=== PATIENT | female | born 1965 | race Caucasian/White ===

== ENCOUNTER 2017-10-30 08:53 | Emergency (ER) | payer BC ==
[~2017-10-30] VITALS: Ht 167.6 cm; Wt 97.1 kg
[2017-10-30] MEDS ORDERED: DIAZEPAM 10 MG/2 ML SYR IVP ONE (09:05)
[2017-10-30] MEDS ORDERED: HYDROmorphone HCL 2 MG/ML SDV IVP ONE (09:05)
--- NOTE | 2017-10-30 09:23 | ER Report ---
History and Physical Time Seen By MD: 09:21 Hx. of Stated Complaint: PATIENT STARTED HAVING LEFT HIP PAIN YESTERDAY. PAIN IS GETTING WORSE HPI/ROS CHIEF COMPLAINT: Atraumatic left hip pain HISTORY OF PRESENT ILLNESS: Patient is a 52-year-old female who presents emergency Department with atraumatic left hip pain. She states that the pain started yesterday and radiates up the left side of the back. Has difficulty finding a position of comfort. She denies any injury. She does report nausea and vomiting last evening when the pain got very severe. The patient is able to ambulate but it does cause significant discomfort. Ice fevers or chills she denies chest pain shortness of breath or abdominal pain. REVIEW OF SYSTEMS: Respiratory: No cough, no dyspnea. Cardiovascular: No chest pain, no palpitations. Gastrointestinal: No vomiting, no abdominal pain. Musculoskeletal: Left-sided back and flank pain, left hip pain Allergies: Coded Allergies: No Known Drug Allergies (Unverified , 10/30/17) Home Meds No Active Prescriptions or Reported Meds Past Medical/Surgical History Noncontributory Hx Substance Use Disorder: No Hx Alcohol Use: No Constitutional Vital Sign - Last 24 Hours 10/30/17 10/30/17 10/30/17 10/30/17 09:02 09:02 09:08 09:23 Temp 98.6 Pulse 86 83 84 Resp 24 B/P (MAP) 128/94 128/94 (105) Pulse Ox 96 98 97 O2 Delivery Room Air 10/30/17 10/30/17 10/30/17 10/30/17 09:30 09:38 09:57 10:00 B/P (MAP) 126/74 (91) 128/68 (88) 115/72 (86) Pulse Ox 96 10/30/17 10:30 B/P (MAP) 118/71 (87) Physical Exam General Appearance: The patient is alert, has no immediate need for airway protection and no current signs of toxicity. Eyes: Pupils equal and round no injection. Respiratory: Chest is non tender, lungs are clear to auscultation. Cardiac: regular rate and rhythm Gastrointestinal: Abdomen is soft and non tender, no masses, bowel sounds normal. Musculoskeletal: Neck: Neck is supple and non tender. Left hip with painful range of motion no obvious deformity. Examination of back reveals left paraspinal muscle tenderness. No midline tenderness. Extremities have full range of motion and are non tender. Skin: No rashes or lesions. Medical Decision Making Data Points Result Diagram: 10/30/17 1015 10/30/17 1015 Laboratory Hematology Test 10/30/17 10:15 10/30/17 10:36 Red Blood Count 4.98 M/uL (4.17-5.56) Mean Corpuscular Volume 84.8 fL (80.0-96.0) Mean Corpuscular Hemoglobin 29.4 pg (26.0-33.0) Mean Corpuscular Hemoglobin Concent 34.7 g/dL (32.0-36.0) Red Cell Distribution Width 13.9 % (11.5-14.5) Mean Platelet Volume 8.2 fL (7.2-11.1) Neutrophils (%) (Auto) 80.8 % (39.4-72.5) Lymphocytes (%) (Auto) 15.3 % (17.6-49.6) Monocytes (%) (Auto) 3.5 % (4.1-12.4) Eosinophils (%) (Auto) 0.1 % (0.4-6.7) Basophils (%) (Auto) 0.3 % (0.3-1.4) Nucleated RBC Relative Count (auto) 0.1 /100WBC Neutrophils # (Auto) 4.3 K/uL (2.0-7.4) Lymphocytes # (Auto) 0.8 K/uL (1.3-3.6) Monocytes # (Auto) 0.2 K/uL (0.3-1.0) Eosinophils # (Auto) 0.0 K/uL (0.0-0.5) Basophils # (Auto) 0.0 K/uL (0.0-0.1) Nucleated RBC Absolute Count (auto) 0.00 K/uL Sodium Level 136 mmol/L (137-145) Potassium Level 3.8 mmol/L (3.5-5.0) Chloride Level 103 mmol/L (98-107) Carbon Dioxide Level 18 mmol/L (22-31) Blood Urea Nitrogen 11 mg/dl (7-18) Creatinine 0.60 mg/dl (0.52-1.04) Glomerular Filtration Rate Calc > 60.0 Random Glucose 124 mg/dl (75-110) Calcium Level 9.1 mg/dl (8.4-10.2) Total Bilirubin 0.8 mg/dl (0.2-1.3) Aspartate Amino Transf (AST/SGOT) 22 U/L (0-35) Alanine Aminotransferase (ALT/SGPT) 29 U/L (0-56) Alkaline Phosphatase 81 U/L (0-126) Total Protein 7.4 gm/dl (6.3-8.2) Albumin 4.2 g/dl (3.5-5.0) Urine Color Yellow Urine Clarity Clear Urine pH 8.0 pH (4.8-9.5) Urine Specific [place] 1.016 Urine Protein 30 mg/dL (NEGATIVE) Urine Glucose (UA) Negative mg/dL (NEGATIVE) Urine Ketones 20 mg/dL (NEGATIVE) Urine Blood Moderate (NEGATIVE) Urine Nitrite Negative (NEGATIVE) Urine Bilirubin Negative (NEGATIVE) Urine Urobilinogen Negative mg/dL (0.2-1.9) Urine Leukocyte Esterase Negative (NEGATIVE) Urine RBC 8 /HPF (0-2/HPF) Urine WBC 1 /HPF (0-5/HPF) Urine Squamous Epithelial Cells Many /LPF (</=FEW) Urine Transitional Epithelial Cells Few /LPF (NONE-FEW) Urine Bacteria Few /HPF (NONE-FEW) Urine Mucus Few /HPF (NONE-FEW) Chemistry Test 10/30/17 10:15 10/30/17 10:36 White Blood Count 5.3 k/uL (4.5-11.0) Red Blood Count 4.98 M/uL (4.17-5.56) Hemoglobin 14.6 g/dL (12.0-16.0) Hematocrit 42.3 % (34.0-47.0) Mean Corpuscular Volume 84.8 fL (80.0-96.0) Mean Corpuscular Hemoglobin 29.4 pg (26.0-33.0) Mean Corpuscular Hemoglobin Concent 34.7 g/dL (32.0-36.0) Red Cell Distribution Width 13.9 % (11.5-14.5) Platelet Count 245 K/uL (150-450) Mean Platelet Volume 8.2 fL (7.2-11.1) Neutrophils (%) (Auto) 80.8 % (39.4-72.5) Lymphocytes (%) (Auto) 15.3 % (17.6-49.6) Monocytes (%) (Auto) 3.5 % (4.1-12.4) Eosinophils (%) (Auto) 0.1 % (0.4-6.7) Basophils (%) (Auto) 0.3 % (0.3-1.4) Nucleated RBC Relative Count (auto) 0.1 /100WBC Neutrophils # (Auto) 4.3 K/uL (2.0-7.4) Lymphocytes # (Auto) 0.8 K/uL (1.3-3.6) Monocytes # (Auto) 0.2 K/uL (0.3-1.0) Eosinophils # (Auto) 0.0 K/uL (0.0-0.5) Basophils # (Auto) 0.0 K/uL (0.0-0.1) Nucleated RBC Absolute Count (auto) 0.00 K/uL Glomerular Filtration Rate Calc > 60.0 Calcium Level 9.1 mg/dl (8.4-10.2) Total Bilirubin 0.8 mg/dl (0.2-1.3) Aspartate Amino Transf (AST/SGOT) 22 U/L (0-35) Alanine Aminotransferase (ALT/SGPT) 29 U/L (0-56) Alkaline Phosphatase 81 U/L (0-126) Total Protein 7.4 gm/dl (6.3-8.2) Albumin 4.2 g/dl (3.5-5.0) Urine Color Yellow Urine Clarity Clear Urine pH 8.0 pH (4.8-9.5) Urine Specific [place] 1.016 Urine Protein 30 mg/dL (NEGATIVE) Urine Glucose (UA) Negative mg/dL (NEGATIVE) Urine Ketones 20 mg/dL (NEGATIVE) Urine Blood Moderate (NEGATIVE) Urine Nitrite Negative (NEGATIVE) Urine Bilirubin Negative (NEGATIVE) Urine Urobilinogen Negative mg/dL (0.2-1.9) Urine Leukocyte Esterase Negative (NEGATIVE) Urine RBC 8 /HPF (0-2/HPF) Urine WBC 1 /HPF (0-5/HPF) Urine Squamous Epithelial Cells Many /LPF (</=FEW) Urine Transitional Epithelial Cells Few /LPF (NONE-FEW) Urine Bacteria Few /HPF (NONE-FEW) Urine Mucus Few /HPF (NONE-FEW) Urinalysis Test 10/30/17 10:36 Urine Color Yellow Urine Clarity Clear Urine pH 8.0 pH (4.8-9.5) Urine Specific [place] 1.016 Urine Protein 30 mg/dL (NEGATIVE) Urine Glucose (UA) Negative mg/dL (NEGATIVE) Urine Ketones 20 mg/dL (NEGATIVE) Urine Blood Moderate (NEGATIVE) Urine Nitrite Negative (NEGATIVE) Urine Bilirubin Negative (NEGATIVE) Urine Urobilinogen Negative mg/dL (0.2-1.9) Urine Leukocyte Esterase Negative (NEGATIVE) Urine RBC 8 /HPF (0-2/HPF) Urine WBC 1 /HPF (0-5/HPF) Urine Squamous Epithelial Cells Many /LPF (</=FEW) Urine Transitional Epithelial Cells Few /LPF (NONE-FEW) Urine Bacteria Few /HPF (NONE-FEW) Urine Mucus Few /HPF (NONE-FEW) EKG/Imaging Imaging FACILITY: [facility] PATIENT NAME: Danyelle Lynch : 1965 MR: [id number] V: [id number] EXAM DATE: ORDERING PHYSICIAN: RAFAELA ABMROCIO TECHNOLOGIST: [place] [facility] [place] Danyelle Lynch : 1965 Visit/Account:[id number] Date of Sevice: 10/30/2017 Exam type: LUMBAR SPINE 2 OR 3 VIEW History: Back pain, no known injury Comparison: None. Findings: There are five nonrib-bearing lumbar-type vertebral bodies present. There is a very gentle dextroconvex scoliosis. There is mild to moderate disc space narrowing L1-2 with marginal osteophytes. This mild disc space narrowing L2-3 with marginal osteophytes Mild disc space narrowing L3-4 with marginal osteophytes Moderate to severe disc space narrowing on the right at L4-5 with marginal osteophytes at L5-S1 disc space appears preserved. There is no evidence of acute fractures or subluxations. IMPRESSION: 1. Multilevel spondylotic changes lumbar spine as described above. No evidence of acute fractures or subluxations Report Dictated By: Joselin Sarabia MD at 10/30/2017 10:19 AM Report E-Signed By: Joselin Sarabia MD at 10/30/2017 10:21 AM WSN:AMISAVANNAVTereso : 1965 MR: [id number] V: [id number] EXAM DATE: ORDERING PHYSICIAN: RAFAELA AMBROCIO TECHNOLOGIST: Location: [facility] [place] Patient: Danyelle Lynch : 1965 Visit/Account:[id number] Date of Sevice: 10/30/2017 CT abdomen and pelvis without contrast Indication: Left flank pain. Comparison: None Available. Technique: Axial CT images are obtained through the abdomen and pelvis. Reformatted coronal and sagittal images were reviewed. IV contrast was not administered. One of the following dose optimization techniques was utilized in the performance of this exam: Automated exposure control; adjustment of the mA and/ or kV according to the patient's size; or use of an iterative reconstruction technique. Specific details can be referenced in the facility's radiology CT exam operational policy. Findings: Lower lung mcduffie: Limited views lower lung field are unremarkable. Evaluation of the solid organs of the abdomen is limited without IV contrast. Liver: No focal parenchymal abnormality of the liver. Biliary: The gallbladder is contracted. There are multiple calcified lamellated gallstones. No surrounding inflammation. No biliary dilatation seen. Pancreas: Normal appearance. Spleen: Normal appearance. Adrenal glands: Unremarkable. Kidneys / retroperitoneum: There is no evidence of hydronephrosis or obstructive uropathy. On the left, there are 2 nonobstructing calculi. A 1 to 2 mm stone is seen in the midpole and there is a 2 to 3 mm stone in the lower pole. On the right, a 2 mm lower pole stone is seen. No other right-sided calculi. No ureteral calculi are seen bilaterally. Bowel / peritoneum / mesenteries: There are scattered sigmoid colon diverticula. No wall thickening or pericolonic inflammation. No evidence of acute diverticulitis. Appendix is normal. No focally dilated bowel loops. Lymph node assessment: No gross adenopathy on this noncontrast study. Pelvic structures: Uterus appears enlarged. There may be a right-sided fibroid demonstrating some mass effect upon the endometrial space. This is incompletely assessed on this noncontrast exam. There is a low-attenuation lesion seen within the right ovary measuring up to 4.1 cm in length. This does not represent a simple cyst. This could be further assessed with pelvic sonography. There is trace free pelvic fluid which is nonspecific. Vessels: Scattered atherosclerotic calcifications seen throughout a nonaneurysmal abdominal aorta and branches. Musculoskeletal / Body wall: No acute or aggressive osseous abnormality. Degenerative changes involve the lumbar spine at multiple levels. No compression deformity. There is a fat-containing umbilical hernia. IMPRESSION: 1. Bilateral nonobstructing renal calculi. No evidence for obstructive uropathy. 2. Cholelithiasis. 3. Question fibroid uterus. This could be further assessed with pelvic sonography. 4. Indeterminant low-attenuation lesion within the right adnexa/ovary measuring 4.1 cm. Comparison with prior imaging studies is recommended. If there are none , pelvic sonography should be performed for further assessment in a patient this age. 5. Colonic diverticulosis without diverticulitis. Report Dictated By: Pepito Garcia at 10/30/2017 12:17 PM Report E-Signed By: Pepito Garcia at 10/30/2017 12:27 PM WSN:[id number] ED Course/Re-evaluation Clinical Indication for ER IV: IV Access ED Course 10/30/2017 10:38:13 am plan at this time will be to place an IV for pain relief we'll check CBC CMP urinalysis. Bedside ultrasound failed to demonstrate any obvious hydronephrosis. We'll consider a CT scan to look for kidney stone if the patient has evidence of hematuria and urine. Re-evaluation 10/30/2017 12:42:57 pm Patient improved after pain medication is able to move around much better. CT scan unremarkable for obstructing kidney stones. There was an incidental 4.1 cm structure on the right ovary that will require follow-up by pelvic ultrasound. This was explained to the patient he normally follows with [facility] in [place] I will provide a contact number for the [facility] [facility] lily and Barbara but she is certainly able to follow up with her own [facility]. It is recommended that she do this within the next 4-6 weeks to schedule ultrasound appointment for right ovarian finding on CT scan Decision to Disposition Date: Oct 30, 2017 Decision to Disposition Time: 12:42 Depart Departure Latest Vital Signs Vital Signs Date Time Temp Pulse Resp B/P (MAP) Pulse Ox O2 Delivery O2 Flow Rate FiO2 10/30/17 10:30 118/71 (87) 10/30/17 09:38 96 10/30/17 09:23 84 10/30/17 09:02 98.6 24 Room Air Impression: Primary Impression: Lumbar back pain Condition: Improved Disposition: HOME OR SELF-CARE Referrals: MAHENDRA GAVIN MD Schedule follow-up appointment with Dr. Gavin or your [facility] in the next 4- 6 weeks. You need a follow-up ultrasound to look at your right ovary. New Scripts Methocarbamol (ROBAXIN-750) 750 Mg Tablet 1500 MG PO TID for Muscle Relaxant, #30 TAB 0 Refills Prov: RAFAELA AMBROCIO MD 10/30/17 Hydrocodone Bit/Acetaminophen (HYDROCODON-ACETAMINOPHEN 5-325) 1 Each Tablet 1 EACH PO Q4-6H Y for PAIN, #12 TAB 0 Refills TAKE ONE TABLET BY MOUTH EVERY 4-6 HOURS NEEDED FOR PAIN Prov: RAFAELA AMBROCIO MD 10/30/17 Patient Instructions: Acute Low Back Pain (DC) Additional Instructions: Scheduled follow-up appointment with your own [facility] or with Dr. Gavin. There is an incidental finding of a right ovarian structure seen as an incidental finding on her CAT scan today. It is recommended that you schedule a follow-up appointment for pelvic ultrasound to better identify the right ovary in the next 4-6 weeks. RAFAELA AMBROCIO MD Oct 30, 2017 09:23
[2017-10-30] MEDS ORDERED: HYDROmorphone(ER ONLY) 1 MG/ML IVP ONE (10:00)
[2017-10-30] MEDS ORDERED: ONDANSETRON 4 MG/2 ML VIAL IVP ONE (10:00)
--- NOTE | 2017-10-30 10:21 | RADIOLOGY IMAGING REPORT ---
FACILITY: [facility] PATIENT NAME: Danyelle Lynch : 1965 MR: [id number] V: [id number] EXAM DATE: ORDERING PHYSICIAN: RAFAELA AMBROCIO TECHNOLOGIST: Location: [facility] [place] Patient: Danyelle Lynch : 1965 Visit/Account:[id number] Date of Sevice: 10/30/2017 ADDENDUM #1 The body and impression should be changed to moderate spondylosis L4-5. Report Dictated By: Joselin Sarabia MD at 10/30/2017 10:18 AM Report E-Signed By: Joselin Sarabia MD at 10/30/2017 10:18 AM ORIGINAL REPORT Exam type: HIP LEFT History: Back pain, no known injury Comparison: None. Findings: There is no evidence of acute fracture, dislocation or significant arthritic change involving the lef t hip. No lytic or blastic bone lesions are identified. Incidentally noted are moderate spondylotic changes at L5-S1. IMPRESSION: 1. No acute osteoarticular abnormality the left hip is seen Moderate spondylotic changes L5-S1 Report Dictated By: Joselin Sarabia MD at 10/30/2017 10:16 AM Report E-Signed By: Joselin Sarabia MD at 10/30/2017 10:17 AM WSN:[email or web address]
--- NOTE | 2017-10-30 10:24 | RADIOLOGY IMAGING REPORT ---
FACILITY: [facility] - [place] PATIENT NAME: Danyelle Lynch : 1965 MR: [id number] V: [id number] EXAM DATE: ORDERING PHYSICIAN: RAFAELA AMBROCIO TECHNOLOGIST: Location: [facility] Patient: Danyelle Lynch : 1965 Visit/Account:[id number] Date of Sevice: 10/30/2017 Exam type: LUMBAR SPINE 2 OR 3 VIEW History: Back pain, no known injury Comparison: None. Findings: There are five nonrib-bearing lumbar-type vertebral bodies present. There is a very gentle dextrocon vex scoliosis. There is mild to moderate disc space narrowing L1-2 with marginal osteophytes. This mild disc space narrowing L2-3 with marginal osteophytes Mild disc space narrowing L3-4 with marginal osteophytes Moderate to severe disc space narrowing on the right at L4-5 with marginal osteophytes at L5-S1 disc space appears preserved. There is no evidence of acute fractures or subluxations. IMPRESSION: 1. Multilevel spondylotic changes lumbar spine as described above. No evidence of acute fractures o r subluxations Report Dictated By: Joselin Sarabia MD at 10/30/2017 10:19 AM Report E-Signed By: Joseiln Sarabia MD at 10/30/2017 10:21 AM WSN:[email or web address]
[2017-10-30 10:30] LABS: PLATELET COUNT, AUTOMATED 245 K/uL (150-450)
--- NOTE | 2017-10-30 12:31 | RADIOLOGY IMAGING REPORT ---
[place] [facility] [place] NAME: Danyelle Lynch : 1965 MR: [id number] V: [id number] EXAM DATE: ORDERING PHYSICIAN: RAFAELA AMBROCIO TECHNOLOGIST: Location: [facility] Patient: Danyelle Lynch : 1965 Visit/Account:[id number] Date of Sevice: 10/30/2017 CT abdomen and pelvis without contrast Indication: Left flank pain. Comparison: None Available. Technique: Axial CT images are obtained through the abdomen and pelvis. Reformatted coronal and sagit breann images were reviewed. IV contrast was not administered. One of the following dose optimization techniques was utilized in the performance of this exam: Autom ated exposure control; adjustment of the mA and/or kV according to the patient's size; or use of an i terative reconstruction technique. Specific details can be referenced in the facility's radiology C T exam operational policy. Findings: Lower lung mcduffie: Limited views lower lung field are unremarkable. Evaluation of the solid organs of the abdomen is limited without IV contrast. Liver: No focal parenchymal abnormality of the liver. Biliary: The gallbladder is contracted. There are multiple calcified lamellated gallstones. No surrou nding inflammation. No biliary dilatation seen. Pancreas: Normal appearance. Spleen: Normal appearance. Adrenal glands: Unremarkable. Kidneys / retroperitoneum: There is no evidence of hydronephrosis or obstructive uropathy. On the lef t, there are 2 nonobstructing calculi. A 1 to 2 mm stone is seen in the midpole and there is a 2 to 3 mm stone in the lower pole. On the right, a 2 mm lower pole stone is seen. No other right-sided calc isael. No ureteral calculi are seen bilaterally. Bowel / peritoneum / mesenteries: There are scattered sigmoid colon diverticula. No wall thickening o r pericolonic inflammation. No evidence of acute diverticulitis. Appendix is normal. No focally dilat ed bowel loops. Lymph node assessment: No gross adenopathy on this noncontrast study. Pelvic structures: Uterus appears enlarged. There may be a right-sided fibroid demonstrating some mass effect upon the endometrial space. This is incompletely assessed on this noncontrast exam. There is a low-attenuation lesion seen within the right ovary measuring up to 4.1 cm in length. This does not represent a simple cyst. This could be further assessed with pelvic sonography. There is trace fr ee pelvic fluid which is nonspecific. Vessels: Scattered atherosclerotic calcifications seen throughout a nonaneurysmal abdominal aorta and branches. Musculoskeletal / Body wall: No acute or aggressive osseous abnormality. Degenerative changes involve the lumbar spine at multiple levels. No compression deformity. There is a fat-containing umbilical hernia. IMPRESSION: 1. Bilateral nonobstructing renal calculi. No evidence for obstructive uropathy. 2. Cholelithiasis. 3. Question fibroid uterus. This could be further assessed with pelvic sonography. 4. Indeterminant low-attenuation lesion within the right adnexa/ovary measuring 4.1 cm. Comparison wi th prior imaging studies is recommended. If there are none, pelvic sonography should be performed for further assessment in a patient this age. 5. Colonic diverticulosis without diverticulitis. Report Dictated By: Pepito Garcia at 10/30/2017 12:17 PM Report E-Signed By: Pepito Garcia at 10/30/2017 12:27 PM WSN:[id number]
[2017-10-30 12:38] VITALS: BP 114/52
[2017-10-30] MEDS ORDERED: LOR5/325 PO (12:46)
[2017-10-30] MEDS ORDERED: METH-543 PO (12:46)
== END 2017-10-30 13:08 | disposition home or self-care (01) ==
LOC: ER 09:21
DX: M54.5 Low back pain (principal)
CPT/HCPCS: 72100; 73502; 74176; 81001; 85025; 96374; 96375; 99284; J1170; J2405; J3360; 82040; 82247; 82310; 82374; 82435; 82565; 82947; 84075; 84132; 84155; 84295; 84450; 84460; 84520

== ENCOUNTER → 2018-09-23 | Outpatient (CLI) | payer BC ==
[~2018-09-23] MED LIST: CETI-176 PO; FLU60SYR36 IM; LOR5/325 PO; METH-543 PO
--- NOTE | 2018-10-02 15:43 | RADIOLOGY IMAGING REPORT ---
FACILITY: [facility] [place] PATIENT NAME: DEMETRIUS PÉREZ : [id number] MR: [id number] V: [id number] EXAM DATE: ORDERING PHYSICIAN: MAHENDRA BAUTISTA TECHNOLOGIST: Tomasa Cueva PROCEDURE:BILATERAL DIGITAL SCREENING MAMMOGRAM WITH CAD ASSISTED INTERPRETATION & 3D TOMOSYNTHESIS COMPARISON:None. INDICATIONS:SCREENING FINDINGS: Attempts were made to obtain the prior mammograms in [facility] however the physicality stated they no longer had records for her as it had been over 12 years sense her prior mammogram. Scattered fibroglandular elements are seen throughout the breasts. Posterior to the mid nipple line on the Right CC view there is a focal asymmetry in the middle 1/3. This is not ideally localized on the MLO view and a true mediolateral view of the Right breast is recommended. There is also a small circumscribed nodular density lateral to the mid nipple line in the anterior 1/3 of the Right breast which appears to be just superior to the mid nipple line on the MLO view. This may simply represent an intramammary lymph node however sense there are no prior mammograms available for comparison Right breast Ultrasound is recommended. There are focal asymmetries in the upper outer quadrant of the Left breast for which Spot compression view is recommended. DIAGNOSTIC CATEGORY 0--INCOMPLETE: NEED ADDITIONAL IMAGING EVALUATION. RECOMMENDATIONS: ADDITIONAL MAMMOGRAPHIC VIEWS REQUIRED: BILATERAL BREASTS. ULTRASOUND: RIGHT BREAST. IMPRESSION: BIRADS 0: Incomplete. Additional view of both breasts and a Right breast Ultrasound is recommended. Dictated by: Joselin Sarabia M.D. on 10/02/2018 at 9:13 Transcribed by: TOM on 10/02/2018 at 9:49 Approved by: Joselin Sarabia M.D. on 10/02/2018 at 15:42 [facility]
== END ==
LOC: MAMO 00:58
PROVIDERS: ATTEND Obstetrics & Gynecology
DX: R92.2 Inconclusive mammogram (principal)
CPT/HCPCS: 77063; 77067

== ENCOUNTER → 2018-10-20 | Outpatient (CLI) | payer BC ==
--- NOTE | 2018-10-21 16:43 | RADIOLOGY IMAGING REPORT ---
FACILITY: [facility] [place] PATIENT NAME: DEMETRIUS PÉREZ : [id number] MR: [id number] V: [id number] EXAM DATE: [id number] ORDERING PHYSICIAN: MAHENDRA BAUTISTA TECHNOLOGIST: Tomasa Cueva PROCEDURE:BILATERAL DIAGNOSTIC DIGITAL MAMMOGRAM WITH CAD ASSISTED INTERPRETATION & 3D TOMOSYNTHESIS COMPARISON:Prior mammograms 09/23/18. INDICATIONS:further evaluation FINDINGS: The patient returns for bilateral CC Spot compression views and Spot compression view in the Left MLO projection in addition to bilateral mediolateral views of both breasts. The focal asymmetry posterior to the mid nipple line and on the previous Right CC view middle 1/3 appeared compressible and apparently represent a summation shadow. The small circumscribed nodular density lateral to mid nipple line anterior 1/3 of the Right breast and just superior to the mid nipple line also appear compressible and apparently represented a summation shadow. The focal asymmetries in the upper outer quadrant of the Left breast were also compressible and apparently represented summation shadows. DIAGNOSTIC CATEGORY 2--BENIGN FINDING. RECOMMENDATIONS: ROUTINE MAMMOGRAM AND CLINICAL EVALUATION. IMPRESSION: BIRADS 2: Benign finding. No significant abnormality is seen in either breast. Dictated by: Joselin Sarabia M.D. on 10/20/2018 at 16:59 Transcribed by: TOM on 10/21/2018 at 8:40 Approved by: Joselin Sarabia M.D. on 10/21/2018 at 16:42 [facility]
== END ==
LOC: US 01:08
PROVIDERS: ATTEND Obstetrics & Gynecology
DX: R92.8 Other abnormal and inconclusive findings on diagnostic imaging of breast (principal)
CPT/HCPCS: 77062; 77066

== ENCOUNTER → 2018-10-20 | Outpatient (CLI) | payer BC ==
--- NOTE | 2018-10-20 15:28 | RADIOLOGY IMAGING REPORT ---
FACILITY: [facility] - [place] PATIENT NAME: Danyelle Lynch : 1965 MR: [id number] V: [id number] EXAM DATE: ORDERING PHYSICIAN: KELLY LAMB TECHNOLOGIST: [place] [facility] [place] : 1965 Visit/Account:[id number] Date of Sevice: 10/20/2018 CT ABDOMEN PELVIS W/O CON HISTORY: Hematuria, history of stones and known abdomen mass TECHNIQUE: Axial images acquired through the abdomen/pelvis. Coronal and sagittal reformatting also performed. No IV contrast administered.Dose Lowering Technique One of the following dose optimization techniques was utilized in the performance of this exam: Autom ated exposure control; adjustment of the mA and/or kV according to the patient's size; or use of an i terative reconstruction technique. Specific details can be referenced in the facility's radiology C T exam operational policy. COMPARISON: October 30, 2017 FINDINGS: Visualized lung bases: Negative. Hepatobiliary: Cholelithiasis although no evidence of biliary ductal dilatation. The right lobe is a elongated measuring 20.6 cm in length . There is hepatic steatosis Spleen: Negative. Adrenals: Negative. Pancreas: Negative. Kidneys ureters and bladder: There is a 1 mm nonobstructing calculus lower pole of the right kidney. There are two calculi seen in the lower pole calyces of the left kidney measuring 1 to 2 mm. There is an additional 1 mm punctate calculus in mid pole calyx. No evidence of hydronephrosis or hydroure ter Genitalia: Uterus is enlarged measuring 12.6 x 8.1 x 9.3 cm. Lobular contour along the left side of the uterus may represent a fibroid. Just superior to the uterus is what appears to be the right ova ry containing a 1.5 cm cyst. GI: There is diverticulosis of the left-sided colon although no CT evidence of acute diverticulitis There is a small hiatal hernia Vessels/spaces/nodes: There is a 1.5 x 0.7 cm lymph node just medial to the gastric fundus. Previou sly measuring 1.3 x 0.7 cm Bones/soft tissues: There is an umbilical hernia containing omentum.. There are spondylotic changes lumbar spine Additional findings: None pertinent. IMPRESSION: Bilateral nonobstructing nephrolithiasis The uterus is enlarged and increased in size when compared the prior study. Lobular contour along th e left side may represent a fibroid. Right ovary appears to project just above the uterus containing a 1.5 cm cyst. Pelvic ultrasound is recommended Small hiatal hernia Colonic diverticulosis 1.5 cm x 0.7 cm lymph node just medial to the gastric fundus is only minimally increased in size and is likely reactive Umbilical hernia containing omentum. Just above the umbilicus is an additional tiny ventral hernia c ontaining fat with the hernia opening measuring 1 cm Just above the umbilicus is an additional tiny ventral hernia containing fat. The hernia opening is 1 cm Hepatic steatosis Cholelithiasis although no evidence of biliary ductal dilatation Report Dictated By: Joselin Sarabia MD at 10/20/2018 3:09 PM Report E-Signed By: Joselin Sarabia MD at 10/20/2018 3:23 PM WSN:[email or web address]
== END ==
LOC: CT 07:08
PROVIDERS: ATTEND Nurse Practitioner Family
DX: N20.0 Calculus of kidney (principal); N85.2 Hypertrophy of uterus; K44.9 Diaphragmatic hernia without obstruction or gangrene; K57.30 Diverticulosis of large intestine without perforation or abscess without bleeding; K43.9 Ventral hernia without obstruction or gangrene; K76.0 Fatty (change of) liver, not elsewhere classified; K80.20 Calculus of gallbladder without cholecystitis without obstruction
CPT/HCPCS: 74176

== ENCOUNTER 2019-01-27 00:17 | Observation (INO) | payer BC ==
[2019-01-27] VITALS (12 sets, daily range): BP systolic 118–158; BP diastolic 67–93
[~2019-01-27] VITALS: Ht 167.6 cm; Wt 101.2 kg
[~2019-01-27 00:17] MED LIST changes: +ATOR10TA24 PO; +CALC500T6 PO; +CHOL10005 PO; +IBUP-136 PO; +LEUP11.25I IM ONLY; +NOR5 PO; +VITA1CAP46 PO
[2019-01-27] MEDS ORDERED: LIDOCAINE MPF 1% 5 ML VIAL ONE (07:51)
[2019-01-27] MEDS ORDERED: DEXAMETHASONE SOD 4 MG/ML VIAL ONE (07:51)
[2019-01-27] MEDS ORDERED: PROPOFOL EMUL(*) 10MG/ML 20 ML 20 ML ONE (07:51)
[2019-01-27] MEDS ORDERED: METOCLOPRAMIDE 10 MG/2 ML SDV ONE (07:51)
[2019-01-27] MEDS ORDERED: ONDANSETRON 4 MG/2 ML VIAL ONE (07:51)
[2019-01-27] MEDS ORDERED: ROCURONIUM BROM 10 MG/ML 10 ML ONE (07:52)
[2019-01-27] MEDS ORDERED: fentaNYL CITR 250 MCG/5 ML AMP ONE (07:54)
[2019-01-27] MEDS ORDERED: SUGAMMADEX SOD 200 MG/2 ML SDV ONE (08:57)
[2019-01-27] MEDS ORDERED: LIDOCAINE/SOD BICARB 8.4% SYR ID ONE (09:00)
[2019-01-27] MEDS ORDERED: FAMOTIDINE 20 MG TAB PO ONE (09:00)
[2019-01-27] MEDS ORDERED: NORMOSOL R SOLN(*) 1000 ML BAG 1,000 ML IV PRN (09:00)
[2019-01-27] MEDS ORDERED: MIDAZOLAM 2 MG/2 ML VIAL IVP PRN (09:00)
[2019-01-27] MEDS ORDERED: PHENAZOPYRIDINE 200 MG TAB PO ONE (09:05)
[2019-01-27] MEDS ORDERED: ceFAZolin(*) 2GM/D5W 50ML 50 ML IVPB ONE (09:05)
[2019-01-27] MEDS ORDERED: BUPIV/EPI 0.25% 1:200,000 50ML INFIL ONE (09:41)
[2019-01-27] MEDS ORDERED: KETOROLAC 30 MG/ML VIAL ONE (11:38)
[2019-01-27] MEDS ORDERED: fentaNYL CITR 100 MCG/2 ML AMP ONE ×2 (12:05→12:30)
[2019-01-27] MEDS ORDERED: METOCLOPRAMIDE 10 MG/2 ML SDV IV PRN (12:10)
[2019-01-27] MEDS ORDERED: ONDANSETRON 4 MG/2 ML VIAL IV PRN (12:10)
[2019-01-27] MEDS ORDERED: DLR(*) 1000 ML BAG 1,000 ML IV PRN (12:10)
[2019-01-27] MEDS ORDERED: MAGNESIUM HYDROXIDE* 30ML UDCP PO PRN (12:10)
[2019-01-27] MEDS ORDERED: ACETAMINOPHEN 325 MG TAB PO PRN (12:10)
[2019-01-27] MEDS ORDERED: SIMETHICONE 80 MG CHEW CHEW PRN (12:10)
--- NOTE | 2019-01-27 12:25 | Post Operative Note ---
Operative Note - FLOORING GRADER Operative Day Date: January 27, 2019 Time: 12:24 Physicians Surgeon: Leslye Industrial Electrician: Stephany Anesthesia: AMARA Robles Diagnosis Pre-Op Diagnosis: Heavy and irregular menses Uterine fibroids Post-Op Diagnosis: Same Procedure Findings: Large uterus with multiple fibroids measuring 453grams Procedure(s): RATLH/BS, dx cysto Specimen Removed:(Maybe N/A): Uterus, cervix, bilateral tubes Fluids Fluids: 1800cc Estimated Blood Loss: Minimal MAHENDRA BAUTISTA MD January 27, 2019 12:25
[2019-01-27] MEDS ORDERED: ACETAMINOPHEN(*)1000 MG/100 ML 100 ML IVPB ONE (12:33)
--- NOTE | 2019-01-27 15:21 | OB/GYN Progress Note ---
OB Subjective Progress Notes Subjective Pt is doing well. She is tolerating po well. Her pain is moderately controlled with percocet. Marino in. Not yet ambulating. OB Objective Physical Exam Vital Signs Date Time Temp Pulse Resp B/P (MAP) Pulse Ox O2 Delivery O2 Flow Rate FiO2 01/27/19 14:50 101 16 96 Nasal Cannula 1.0 01/27/19 14:30 139/85 (103) 01/27/19 13:08 98.0 General Appearance: Alert/Awake/No Acute Distress Neurological: No Gross deficits Eyes: Normal Extraocular Movement & Vison Cardiovascular: Normal Rhythm & Peripheral Pulses Respiratory: No Respiratory Distress Abdomen: Soft, Non-Tender, Non-Distended Incision: Clean, Dry, Intact, Dermabond Musculoskeletal: No Weakness/Pain Extremities: No Cyanosis,Clubbing or Edema Integumentary: Skin Intact without Lesions or Rash Psychological: Alert & Oriented X3, Appropriate Mood & Affect Assessment and Plan Problems: (1) History of robot-assisted laparoscopic hysterectomy Assessment & Plan: POD#0 s/p DOMINIC BS, dx cysto. Doing well. Routine orders. MAHENDRA BAUTISTA MD January 27, 2019 15:20
[2019-01-27] MEDS ORDERED: IBUP800T37 PO (15:23)
[2019-01-27] MEDS ORDERED: OXYC-865 PO (15:23)
--- NOTE | 2019-01-27 16:53 | OPERATIVE REPORT 1 ---
EVENT DATE: January 27, 2019 SURGEON: Sonia Gavin MD ANESTHESIOLOGIST: Alan Robles MD ANESTHESIA: General endotracheal tube anesthetic. FOREST PRODUCTS TEACHER: Lula Hammond DO PREOPERATIVE DIAGNOSES 1. Heavy and irregular menses. 2. Uterine fibroids. POSTOPERATIVE DIAGNOSES 1. Heavy and irregular menses. 2. Uterine fibroids. PROCEDURES PERFORMED 1. Robotic-assisted total laparoscopic hysterectomy with bilateral salpingectomy. 2. Diagnostic cystoscopy. FINDINGS Large uterus with multiple fibroids measuring 453 g. SPECIMENS REMOVED Uterus, cervix, and bilateral fallopian tubes. INTRAVENOUS FLUIDS 1800 mL. ESTIMATED BLOOD LOSS Minimal. INDICATION FOR PROCEDURE This patient is a 53-year-old , who presents with heavy and irregular menses. She initially presented on 07/24/18 for a wellness visit. At that time, she described a long-standing history of heavy menses. However, since January 2018, she has had bleeding every two to four weeks. She was found to have a benign endometrial biopsy. Ultrasound revealed an enlarged uterus with an intramural myoma measuring 6.8 x 5.8 x 7.5 cm. She initially chose conservative management with Depo-Lupron. After her first injection, she noticed some bloating as well as continued bleeding. She then opted for definitive management with hysterectomy. Please see the History and Physical for full details. She was admitted for the above-said procedure. DESCRIPTION OF PROCEDURE The patient was properly identified and taken to the operating room. She was placed under general endotracheal tube anesthetic and placed in the dorsal lithotomy position and prepped and draped in the usual fashion for a laparoscopic-assisted vaginal procedure. The patient received Ancef preoperatively for prophylactic antibiotics. Her SCDs were on and functioning. A manual exam revealed an approximately 11 cm anteverted uterus. A Graves speculum was placed to visualize the cervix, which was multiparous and without lesion. The anterior lip was grasped with an Allis clamp. The cervix was serially dilated to 5 mm using Hegar dilators. A medium VCare uterine manipulator was then requested and assembled. A suture was then placed through the anterior lip of the cervix, through the os, and then from the os to the posterior lip of the cervix. This was then passed through the VCare. The VCare was placed up to the uterine fundus, and the tip was insufflated. This remained in place, and the colpotomy ring was advanced to be flush against the cervix and vaginal mucosa. This was then tied down with an 0 Vicryl suture. The PneumoClear was advanced into the vagina and secured. A Marino catheter was then placed to drain the bladder. The patient was then placed in the supine position, and attention was turned to the laparoscopic portion of the procedure. The supraumbilical region was infiltrated with 0.25% Marcaine with epinephrine. An 8 mm incision was made supraumbilically. The 8 mm trocar was introduced through the supraumbilical midline incision under direct visualization using a Beacon Reader laparoscope. Once entry into the abdominal cavity was confirmed, the remaining locations of the trocars were planned with two on the right and two on the left. The two 8 mm trocars were inserted under direct visualization on the patient's right side. On the patient's left side, an 11 mm incision was made, with the most lateral incision an 8 mm incision on the more medial. These two ports were introduced under direct visualization. At this time, the patient was placed into Trendelenburg position. The da Peña robotic system was prepared for docking. It was then brought into line. Endoscope port was docked. The endoscope was then introduced, and targeting was performed on the uterus. The remaining arms were then docked without difficulty. The fenestrated bipolar graspers, ProGrasp, and monopolar scissors were then advanced under direct visualization into the pelvis, and energy was connected. At this time, I was able to break sterile attire and sit at the console to initiate the hysterectomy. Examination of the pelvis revealed no significant adhesions or abnormalities; however, the uterus was extremely enlarged with a globular appearance, indicating multiple fibroids. In order to initiate the salpingectomy on the patient's right side, the right fallopian tube was elevated, and the mesosalpinx was cauterized and transected. This tube was then delivered through the 11 mm trocar. The same procedure was performed on the left side without any difficulty. The patient's right round ligament was then cauterized and transected, which allowed opening of the broad ligament. The anterior leaflet of the broad ligament was then opened and brought down across the midline above the colpotomy ring in order to separate the vesicouterine peritoneum. The posterior peritoneum was then dissected further off the uterus on the right side down to the cervix. The uterine vessels were identified, cauterized, and transected in order to allow the colpotomy to be performed. At this time, it was noted that the uterine manipulator had perforated at the left cornu of the uterus. This was brought back down into the uterine cavity. Attention was then turned to the patient's left side where the left ureter was identified to be far away from any planned incisions. The left round ligament was cauterized and transected, which allowed the broad ligament to be opened. The anterior leaflet was brought down to the midline where the prior vesicouterine peritoneum on the other side had been dissected. The posterior leaflet was then also brought down to the level of the colpotomy ring. The uterine vessels were then visualized and cauterized. At this time, the bladder flap was further delineated and brought down without difficulty to a safe area in order to allow for closure of the vaginal cuff later. The colpotomy was then initiated anteriorly with identification of the colpotomy ring. The colpotomy was then continued in a circumferential fashion until the entire colpotomy was completed. The uterus was then delivered through the vagina. This did take significant manipulation due to the large uterus. However, it was unable to be delivered in one piece. A bulb was then placed in the vagina to maintain a pneumoperitoneum. The uterus measured 453 g. The vaginal cuff was copiously irrigated and noted to be hemostatic. An 0 Vicryl suture was then utilized in a [id number] manner on the left corner to reapproximate the tissue. A V-Loc was then initiated on the right side to reapproximate the right corner, following to the left with an unlocked suture. Once this was completely closed, the suture was followed backwards with one additional suture towards the right. Once this was completed, copious irrigation was again performed, revealing adequate hemostasis. Using AdriaMart in the fascia, the information technology assistant port was then closed using 0 Vicryl with robotic assistance. All the robotic arms were then undocked, and the instruments were removed. Pneumoperitoneum was relieved, and the 11 mm fascia was tied down. All five skin incisions were reapproximated using a 4-0 Monocryl and closed with Dermabond. The Marino catheter was then removed from the bladder. A cystoscope was assembled and introduced through the urethra and into the bladder under direct visualization. The entire bladder was evaluated and noted to be normal without any lesion or sutures. Bilateral ureteral jets were noted with yellow urine. The cystoscope was then removed, and the Marino catheter was replaced. The patient tolerated this procedure well and recovered in the Post-Anesthesia Care Unit. All sponge and instrument counts were correct at the end of the procedure. NORBERTO
[2019-01-27] MEDS ORDERED: KETOROLAC 30 MG/ML VIAL IVP ONE (18:00)
[2019-01-27] MEDS: FAMOTIDINE 20 MG TAB PO SCH (21:04)
[2019-01-27] MEDS: DOCUSATE CALCIUM 240 MG CAP PO SCH (21:04)
[2019-01-28] MEDS ORDERED: IBUPROFEN 800 MG TAB PO PRN
[2019-01-28 03:26] VITALS: BP 124/77
[2019-01-28 06:07] LABS: PLATELET COUNT, AUTOMATED 309 K/uL (150-450)
[2019-01-28 07:40] VITALS: BP 114/81
--- NOTE | 2019-01-28 08:04 | OB/GYN Progress Note ---
OB Subjective Progress Notes Subjective Doing well. Pain controlled with oral medications. Tolerating regular diet. Ambulating. Voiding. Minimal vaginal bleeding. No chest pain, shortness of breath or dizziness. OB Objective Physical Exam Vital Signs Date Time Temp Pulse Resp B/P (MAP) Pulse Ox O2 Delivery O2 Flow Rate FiO2 01/28/19 03:26 99.1 84 18 124/77 (93) 90 Nasal Cannula 1.0 Intake and Output 01/28/19 07:00 Intake Total 4890 ml Output Total 7600 ml Balance -2710 ml Intake Oral 2590 ml IV Total 2300 ml Output Urine Total 7600 ml # Voids 1 General Appearance: Alert/Awake/No Acute Distress Neurological: No Gross deficits Eyes: Normal Extraocular Movement & Vison Cardiovascular: Normal Rhythm & Peripheral Pulses Respiratory: No Respiratory Distress Abdomen: Soft, Non-Tender, Non-Distended Incision: Clean, Dry, Intact, Dermabond Musculoskeletal: No Weakness/Pain Extremities: No Cyanosis,Clubbing or Edema Integumentary: Skin Intact without Lesions or Rash Psychological: Alert & Oriented X3, Appropriate Mood & Affect Result Diagram: 01/28/19 0549 Assessment and Plan Problems: (1) History of robot-assisted laparoscopic hysterectomy Assessment & Plan: POD#1 s/p DOMINIC, BS, dx cysto. Meeting milestones. Desires discharge to home today. Discussed routine postoperative expectations. Questions answered. Follow up in clinic in 1wks for postop check. MAHENDRA BAUTISTA MD January 28, 2019 08:04
--- NOTE | 2019-01-28 08:15 | OB/GYN Discharge Summary ---
Discharge Summary Reason for Hosp/Final Diag: (1) History of robot-assisted laparoscopic hysterectomy Hospital Course & Plan: POD#1 s/p YANALAdis, BS, dx cysto. Meeting milestones. Desires discharge to home today. Discussed routine postoperative expectations. Questions answered. Follow up in clinic in 1wks for postop check. Lates Vital Signs Vital Signs Date Time Temp Pulse Resp B/P (MAP) Pulse Ox O2 Delivery O2 Flow Rate FiO2 01/28/19 03:26 99.1 84 18 124/77 (93) 90 Nasal Cannula 1.0 Weight (Pounds): 223 Result Diagram: 01/28/19 0549 Condition: Improved Discharge: Home, Self Residential Meds Active Scripts Oxycodone Hcl/Acetaminophen (PERCOCET 5-325 MG TABLET) 1 Each Tablet, 1-2 EACH PO Q4-6H PRN for pain, #20 TAB 0 Refills Prov:MAHENDRA BAUTISTA MD 01/27/19 Ibuprofen (IBUPROFEN) 800 Mg Tablet, 1 TAB PO Q8H PRN for pain, #30 TAB 0 Refills TAKE WITH FOOD EVERY 8 HOURS Prov:MAHENDRA BAUTISTA MD 01/27/19 Reported Medications Calcium Carbonate (CALCIUM) 500 Mg Tablet, 500 MG PO 01/13/19 Cholecalciferol (Vitamin D3) (VITAMIN D3) 1,000 Unit Tablet, 5000 UNIT PO, TAB 01/13/19 Vitamin B Complex (VITAMIN B COMPLEX) 1 Each Capsule, 1 EACH PO, CAPSULE 01/13/19 Atorvastatin Calcium (LIPITOR) 10 Mg Tablet, 1 TAB PO HS, TAB 01/13/19 Discontinued Reported Medications Ibuprofen (IBUPROFEN) 200 Mg Capsule, 2 CAP PO PRN, CAPSULE 01/13/19 Cetirizine Hcl (ZYRTEC) 10 Mg Tablet, 1 TAB PO QDAY, TAB 07/09/18 Discontinued Scripts Norethindrone Acetate (NORETHINDRONE ACETATE) 5 Mg Tab, 5 MG PO DAILY for 30 Days, #30 TAB 2 Refills Prov:MAHENDRA BAUTISTA MD 11/04/18 Follow up Referrals: THREE DIMENSIONAL ART INSTRUCTOR - In Two Weeks @ [facility] [place] with MAHENDRA BAUTISTA MD Discharge Diet: As Tolerates Discharge Activity: No Heavy Lifting > 10lb, Pelvic Rest MAHENDRA BAUTISTA MD January 28, 2019 08:15
[2019-01-28] MEDS: FAMOTIDINE 20 MG TAB PO SCH (08:24)
[2019-01-28] MEDS: DOCUSATE CALCIUM 240 MG CAP PO SCH (08:24)
[2019-01-28] MEDS ORDERED: INFLUENZA VIRUS VAC 0.5ML SYR IM ONLY ONE (12:10)
== END 2019-01-28 08:06 | disposition home or self-care (01) ==
LOC: OR 00:17 → PED 13:08
PROVIDERS: ADMIT Obstetrics & Gynecology; ATTEND Obstetrics & Gynecology
DX: N92.0 Excessive and frequent menstruation with regular cycle (principal); N92.6 Irregular menstruation, unspecified
CPT/HCPCS: 36415; 58573; 85025; 88307; G0378; J0131; J1100; J1885; J2001; J2250; J2405; J2704; J2765; J3010; S2900; J0690

== ENCOUNTER → 2019-02-17 | Outpatient (CLI) | payer BC ==
[~2019-02-17] MED LIST changes: +IBUP800T37 PO; +OXYC-865 PO
--- NOTE | 2019-02-17 15:03 | RADIOLOGY IMAGING REPORT ---
FACILITY: PATIENT NAME: Danyelle Lynch : 1965 MR: [id number] V: [id number] EXAM DATE: ORDERING PHYSICIAN: KELLY LAMB TECHNOLOGIST: [facility] Patient: Danyelle Lynch : 1965 Visit/Account:[id number] Date of Sevice: 02/17/2019 CT ABDOMEN PELVIS W/O CON HISTORY: Hematuria TECHNIQUE: Axial images acquired through the abdomen/pelvis. Coronal and sagittal reformatting also performed. No IV contrast administered.Dose Lowering Technique One of the following dose optimization techniques was utilized in the performance of this exam: Autom ated exposure control; adjustment of the mA and/or kV according to the patient's size; or use of an i terative reconstruction technique. Specific details can be referenced in the facility's radiology C T exam operational policy. COMPARISON: October 20, 2018 FINDINGS: Visualized lung bases: Negative. Hepatobiliary: There multiple calcified gallstones. No evidence of biliary ductal dilatation Spleen: Negative. Adrenals: Negative. Pancreas: Negative. Kidneys ureters and bladder: There is a 1 mm nonobstructing calculus lower pole calyx of the right ki dney two calculi in the lower pole calyces left kidney measuring 1 to 2 mm are again seen in addition to punctate 1 mm calculus in the midpole no ureteral calculi are identified. There is no evidence o f hydronephrosis or hydroureter. Genitalia: Hysterectomy GI: Small hiatal hernia. Diverticulosis of the left side of the colon although no CT evidence of ac ambler diverticulitis. Vessels/spaces/nodes: 1.1 x 0.7 cm lymph node projects just medial to the gastric fundus and is decr eased in size from 1.5 x 0.7 cm Bones/soft tissues: There is an umbilical hernia containing fat. There are spondylotic changes of t he lumbar spine Additional findings: None pertinent. IMPRESSION: Nonobstructing calculi seen in both renal collecting systems appear unchanged Small hiatal hernia Diverticulosis left-sided of the colon Umbilical hernia containing fat Cholelithiasis although no evidence of biliary ductal dilatation Additional chronic findings Report Dictated By: Joselin Sarabia MD at 02/17/2019 2:50 PM Report E-Signed By: Joselin Sarabia MD at 02/17/2019 2:58 PM WSN:[email or web address]
== END ==
LOC: CT 13:30
PROVIDERS: ATTEND Nurse Practitioner Family
DX: R31.9 Hematuria, unspecified (principal); K44.9 Diaphragmatic hernia without obstruction or gangrene; K57.92 Diverticulitis of intestine, part unspecified, without perforation or abscess without bleeding; K42.9 Umbilical hernia without obstruction or gangrene; K80.80 Other cholelithiasis without obstruction
CPT/HCPCS: 74176

== ENCOUNTER → 2019-02-23 | Outpatient (CLI) | payer BC ==
[~2019-02-23] MED LIST changes: +CIPR-214 PO; +LEVO250T41 PO
--- NOTE | 2019-02-23 11:33 | RADIOLOGY IMAGING REPORT ---
FACILITY: [facility] [place] PATIENT NAME: Danyelle Lynch : 1965 MR: [id number] V: [id number] EXAM DATE: ORDERING PHYSICIAN: BRANDI SZYMANSKI TECHNOLOGIST: Location: [facility] [place] Patient: Danyelle Lynch : 1965 Visit/Account:[id number] Date of Sevice: 02/23/2019 Exam type: KUB SINGLE VIEW ABDOMEN History: hematuria Comparison: February 17, 2019. Findings: Bowel gas pattern is nonspecific. Multiple calcified gallstones identified over the right upper quad rant of the abdomen. Nonobstructing calculi noted in the renal collecting systems bilaterally on the recent CT are not as well-seen by KUB. There are small calcifications in the pelvis likely represen ting phleboliths. No gross evidence organomegaly. There are spondylotic changes the lumbar spine. IMPRESSION: 1. Not certain calculi identified in the renal collecting systems on the recent CT are not as well-s een by KUAlicia Cholelithiasis Report Dictated By: Joselin Sarabia MD at 02/23/2019 11:22 AM Report E-Signed By: Joselin Sarabia MD at 02/23/2019 11:29 AM WSN:[email or web address]
== END ==
LOC: RAD 10:50
PROVIDERS: ATTEND Urology
DX: R31.9 Hematuria, unspecified (principal); Z87.442 Personal history of urinary calculi
CPT/HCPCS: 74018

== ENCOUNTER → 2019-02-23 | Outpatient (CLI) | payer BC ==
[~2019-02-23] MED LIST changes: -LEVO250T41 PO
== END ==
LOC: LAB 10:20
PROVIDERS: ATTEND Urology
DX: R31.9 Hematuria, unspecified (principal)
CPT/HCPCS: 81001; 87088

== ENCOUNTER 2019-03-04 00:32 | Day surgery (SDC) | payer BC ==
[~2019-03-04] VITALS: Ht 167.6 cm; Wt 103.4 kg
[~2019-03-04 00:32] MED LIST changes: +LEVO250T41 PO
[2019-03-04] MEDS ORDERED: FAMOTIDINE 20 MG TAB PO ONE (06:45)
[2019-03-04] MEDS ORDERED: MIDAZOLAM 2 MG/2 ML VIAL IVP PRN (06:45)
[2019-03-04] MEDS ORDERED: NORMOSOL R SOLN(*) 1000 ML BAG 1,000 ML IV PRN (06:45)
[2019-03-04] MEDS ORDERED: LIDOCAINE/SOD BICARB 8.4% SYR ID ONE (06:45)
[2019-03-04 07:00] VITALS: BP 142/73
[2019-03-04] MEDS ORDERED: fentaNYL CITR 100 MCG/2 ML AMP ONE (07:29)
[2019-03-04] MEDS ORDERED: PROPOFOL EMUL(*) 10MG/ML 20 ML 20 ML ONE (07:29)
[2019-03-04] MEDS ORDERED: DEXAMETHASONE SOD PHOS 10MG/ML ONE (07:29)
[2019-03-04] MEDS ORDERED: ONDANSETRON 4 MG/2 ML VIAL ONE (07:29)
[2019-03-04] MEDS ORDERED: LIDOCAINE MPF 1% 5 ML VIAL ONE (07:29)
[2019-03-04] MEDS ORDERED: KETOROLAC 30 MG/ML VIAL ONE (07:31)
[2019-03-04] MEDS ORDERED: KETAMINE HCL 200 MG/20 ML MDV ONE (07:51)
[2019-03-04] MEDS ORDERED: ePHEDrine 25 MG/5 ML DISP.SYR IVP ONE (08:15)
[2019-03-04] MEDS ORDERED: LIDOCAINE 2% JELLY 5 ML TUBE ONE (08:54)
--- NOTE | 2019-03-04 09:01 | Urology Discharge Summary ---
Discharge Summary Reason for Hosp/Final Diag: (1) Left nephrolithiasis Status: Resolved Departure Weight (Pounds): 228 Condition: Improved Discharge: Home Time Spent: < 30 min Discharge Instructions Home Meds Active Scripts Levofloxacin 250 Mg Tab (LEVOFLOXACIN 250 MG TAB) 250 Mg Tablet, 250 MG PO DAILY for 5 Days, #5 TAB Prov:BRANDI SZYMANSKI MD 02/25/19 Reported Medications Calcium Carbonate (CALCIUM) 500 Mg Tablet, 500 MG PO 01/13/19 Cholecalciferol (Vitamin D3) (VITAMIN D3) 1,000 Unit Tablet, 5000 UNIT PO, TAB 01/13/19 Vitamin B Complex (VITAMIN B COMPLEX) 1 Each Capsule, 1 EACH PO, CAPSULE 01/13/19 Atorvastatin Calcium (LIPITOR) 10 Mg Tablet, 1 TAB PO HS, TAB 01/13/19 Diet: Regular Activity: As Tolerated Venous Thromboembolism Antithrombotics Is Pt On Any Antithrombotics?: No Prophylaxis Tx Contraindicated Pharmacological Contraindicati: Surgical Contraindication BRANID SZYMANSKI MD Mar 04, 2019 09:01
--- NOTE | 2019-03-04 09:11 | OPERATIVE REPORT 1 ---
EVENT DATE: March 04, 2019 SURGEON: Nishant Fulton MD ANESTHESIOLOGIST: Nick Salinas MD ANESTHESIA: General. ELEVATOR TECHNICIAN: None. PREOPERATIVE DIAGNOSIS Left nephrolithiasis. POSTOPERATIVE DIAGNOSIS Left nephrolithiasis. PROCEDURE PERFORMED Left extracorporeal shock wave lithotripsy. DESCRIPTION OF PROCEDURE Patient was brought to the operating room and after the stones were identified in the lower pole of the left kidney fluoroscopically, she underwent induction of general anesthesia and then the stones were treated with a total of 2500 shocks at a rate of 60 and a maximum power setting of 4. She tolerated the procedure well. She was aroused from anesthesia and then transported to PACU in stable condition. NORBERTO
[2019-03-04 09:30] VITALS: BP 117/71
[2019-03-04] MEDS ORDERED: HYDR-385 PO (09:39)
[2019-03-04 09:46] VITALS: BP 121/86
[2019-03-04 09:48] VITALS: BP 119/70
--- NOTE | 2019-03-04 10:08 | NUR ---
0930 PT REC'D IN [place] VIA CART, SBAR FROM Rachel LAW RN, VSS, PT ALERT AND DENIES ANY PAIN OR NAUSEA, REFILLED WATER, OPENED FLUIDS WIDE OPEN, FRANCO AT BEDSIDE 46 PT WOULD LIEK TO GO HOME, ORTHOSTATCS DONE, STABLE, PT DENIES DIZZINESS, D/C IV FROM TUBING 50 DR. SZYMANSKI AT BEDSIDE, PT TO RESTROOM, VOIDED ONCE WITHOUT DIFFICULTY/PAIN, PINK URINE REPORTED, NOT STRAINED. PT DRESSED AFTER RETURNING TO ROOM 0955 D/C INSTRUCTIONS COVERED, ALL QUESTIONS ANSWERED, 1004 OUT TO CAR ON FOOT, STEADY, DECLINES WC, ALL BELONGINGS WITH PT, PROVIDED STRAINERS AND SPECIMEN CONTAINER, PT SELF TRANSFERRED INTO VEHICLE OUTSIDE OF ER
[2019-03-04] MEDS ORDERED: LEVOFLOXACIN/D5W*500 MG/100 ML 100 ML IVPB ONE (11:00)
== END 2019-03-04 09:30 | disposition home or self-care (01) ==
LOC: OR 00:32
PROVIDERS: ATTEND Urology
DX: N20.0 Calculus of kidney (principal); E78.5 Hyperlipidemia, unspecified
CPT/HCPCS: J1100; J1885; J1956; J2001; J2250; J2405; J2704; J3010; J3490

== ENCOUNTER → 2019-04-15 | Outpatient (CLI) | payer BC ==
[~2019-04-15] MED LIST changes: +HYDR-385 PO
--- NOTE | 2019-04-15 16:05 | RADIOLOGY IMAGING REPORT ---
FACILITY: [facility] - [place] PATIENT NAME: Danyelle Lynch : 1965 MR: [id number] V: [id number] EXAM DATE: ORDERING PHYSICIAN: BRANDI SZYMANSKI TECHNOLOGIST: Location: [facility] [place] Patient: Danyelle Lynch : 1965 Visit/Account:[id number] Date of Sevice: 04/15/2019 Exam: KUB SINGLE VIEW ABDOMEN Indication: kidney stones, RAD Comparison: CT 02/17/2019 Findings: No nephroureteral calculi are visualized. There are stable pelvic phlebolith. There is a nonobstructive bowel gas pattern with a mild stool burden noted. IMPRESSION: 1. No nephroureteral calculi identified Report Dictated By: Felipe Colindres at 04/15/2019 3:56 PM Report E-Signed By: Felipe Colindres at 04/15/2019 3:58 PM WSN:[id number]
== END ==
LOC: RAD 15:30
PROVIDERS: ATTEND Surgery
DX: N20.0 Calculus of kidney (principal)
CPT/HCPCS: 74018

== ENCOUNTER 2019-05-21 01:48 | Day surgery (SDC) | payer BC ==
[~2019-05-21] VITALS: Ht 167.6 cm; Wt 101.6 kg
[2019-05-21] MEDS ORDERED: PROPOFOL EMUL(*) 10MG/ML 20 ML 40 ML ONE (07:00)
[2019-05-21 09:35] VITALS: BP 127/80
[2019-05-21] MEDS ORDERED: LIDOCAINE/SOD BICARB 8.4% SYR ID ONE (10:40)
[2019-05-21] MEDS ORDERED: NORMOSOL R SOLN(*) 1000 ML BAG 1,000 ML IV PRN (10:40)
[2019-05-21 11:37] VITALS: BP 125/64
[2019-05-21 11:45] VITALS: BP 115/74
--- NOTE | 2019-05-21 11:46 | Short(Outpt) Discharge Summary ---
Discharge Summary Reason for Hosp/Final Diag: (1) Colon cancer screening Status: Chronic Hospital Course & Plan: pt presented for colonoscopy. she tolerated the procedure well and will be discharged home when criteria met. Departure Discharge to: Home Discharge Instructions Home Meds Active Scripts Levofloxacin 250 Mg Tab (LEVOFLOXACIN 250 MG TAB) 250 Mg Tablet, 250 MG PO DAILY for 5 Days, #5 TAB Prov:BRANDI SZYMANSKI MD 02/25/19 Reported Medications Calcium Carbonate (CALCIUM) 500 Mg Tablet, 500 MG PO 01/13/19 Cholecalciferol (Vitamin D3) (VITAMIN D3) 1,000 Unit Tablet, 5000 UNIT PO, TAB 01/13/19 Vitamin B Complex (VITAMIN B COMPLEX) 1 Each Capsule, 1 EACH PO, CAPSULE 01/13/19 Atorvastatin Calcium (LIPITOR) 10 Mg Tablet, 1 TAB PO HS, TAB 01/13/19 Diet: Regular Activity: As Tolerated Special Instructions: we will call you with biopsy results. FARIBA FIELD May 21, 2019 11:46
[2019-05-21 12:09] VITALS: BP 111/74
[2019-05-21 12:12] VITALS: BP 116/78
== END 2019-05-21 12:20 | disposition home or self-care (01) ==
LOC: OR 01:48
PROVIDERS: ATTEND Surgery
DX: Z12.11 Encounter for screening for malignant neoplasm of colon (principal); K62.1 Rectal polyp; K57.30 Diverticulosis of large intestine without perforation or abscess without bleeding
CPT/HCPCS: 88305; J2704